=== PATIENT | female | born 1995 | race Caucasian/White ===

== ENCOUNTER 2017-05-18 16:06 | Outpatient (CLI) | payer BC, OTHER ==
[~2017-05-18] VITALS: Ht 157.5 cm; Wt 59.1 kg
[2017-05-18] MEDS ORDERED: TYLENOL 325MG325 MG PO (16:43)
[2017-05-18] MEDS ORDERED: PRENATAL (16:43)
[2017-05-18 16:44] VITALS: BP 119/82; PULSE 122; TEMP 98
[2017-05-18 16:56] VITALS: BP 119/82; PULSE 122; TEMP 98
== END 2017-05-18 17:20 | disposition home or self-care (01) ==
LOC: LDRO 16:06 → LDR 16:20 → LDRO 17:20
DX: Z34.03 Encounter for supervision of normal first pregnancy, third trimester (principal); Z3A.37 37 weeks gestation of pregnancy
CPT/HCPCS: OP

== ENCOUNTER 2017-05-21 09:39 | Inpatient (IN) | payer BC, OTHER ==
[2017-05-21] VITALS (19 sets, daily range): BP systolic 92–112; BP diastolic 50–86; PULSE 76–114; TEMP 97.5–98.3
[~2017-05-21] VITALS: Ht 156.2 cm; Wt 58.2 kg
[~2017-05-21 09:39] MED LIST: PRENATAL; TYLENOL 325MG325 MG PO
[2017-05-21 11:44] LABS: HEMATOCRIT 41.9 % (37.0-47.0); HEMOGLOBIN 14.1 g/dl (12.5-16.0); MEAN CELL VOLUME 90 fl (80.0-100.0); MEAN CORPUSCULAR HEMOGLOBIN 30 pg (27.0-31.0); MEAN CORPUSCULAR HGB CONC 34 g/dl (33.0-37.0); MEAN PLATELET VOLUME 9.7 fl (7.4-10.4); PLATELET COUNT 278 K/mm3 (130-400); RED BLOOD COUNT 4.64 M/mm3 (4.10-5.30); REDCELL DISTRIBUTION WIDTH-CV 12.6 % (11.5-14.5)
[2017-05-21 11:59] LABS: BAND 4 % (0-10); LYMPHOCYTE 30 % (20.0-51.0); NEUTROPHILS 60 % (42.0-75.2); PLATELET ESTIMATE NORMAL (NORMAL)
[2017-05-21 12:00] LABS: HYPOCHROMIA 1+
[2017-05-22] VITALS: BP 110/58; PULSE 70; TEMP 98
[2017-05-22] MEDS ORDERED: PERCOCET 325 MG1 TA2 PO (02:36)
[2017-05-22] MEDS ORDERED: MOTRIN 800800 MG/TAB PO (02:36)
[2017-05-22 04:00] VITALS: BP 111/64; PULSE 70; TEMP 98.4
[2017-05-22 06:35] VITALS: BP 101/65; PULSE 82; TEMP 97.7
[2017-05-22 07:32] LABS: HEMATOCRIT 32.6 % (37.0-47.0)
[2017-05-22 16:00] VITALS: BP 97/69; PULSE 83; TEMP 98.1
[2017-05-22 19:00] VITALS: BP 93/62; PULSE 82; TEMP 97.7
[2017-05-22 22:30] VITALS: BP 127/65; PULSE 81; TEMP 98.5
[2017-05-23 08:31] VITALS: BP 102/65; PULSE 82; TEMP 98.1
[2017-05-23 15:21] VITALS: BP 108/71; PULSE 92; TEMP 97.5
[2017-05-23 21:00] VITALS: BP 103/66; PULSE 94; TEMP 98.2
[2017-05-24 05:00] VITALS: TEMP 98.7
[2017-05-24 08:17] VITALS: BP 99/63; PULSE 96; TEMP 98.9
[2017-05-24] MEDS ORDERED: IBU800 M1 PO (12:29)
[2017-05-24] MEDS ORDERED: NORCO 325 MG-51 TAB PO (12:29)
== END 2017-05-24 13:05 | disposition home or self-care (01) | DRG 765 ==
LOC: LDRO 09:39 → OB 10:50 → LDR 10:50 → OB 15:38
PROVIDERS: Obstetrics & Gynecology
PROC: 10D00Z1 Extraction of Products of Conception, Low, Open Approach (ICD-10-PCS; principal; 2017-05-21)
DX: O42.02 Full-term premature rupture of membranes, onset of labor within 24 hours of rupture (principal); O98.82 Other maternal infectious and parasitic diseases complicating childbirth; B37.3 Candidiasis of vulva and vagina; O32.1XX0 Maternal care for breech presentation, not applicable or unspecified; O26.843 Uterine size-date discrepancy, third trimester; Z3A.38 38 weeks gestation of pregnancy; Z37.0 Single live birth
CPT/HCPCS: J0690; J1885; J2175; J2270; J2370; J2405; J2590; J3010; J7120

== ENCOUNTER → 2020-01-17 | Outpatient (CLI) | payer OTHER ==
[~2020-01-17] MED LIST changes: +IBU800 M1 PO; +MOTRIN 800800 MG/TAB PO; +NORCO 325 MG-51 TAB PO; +PERCOCET 325 MG1 TA2 PO
== END ==
LOC: COL.RAD
DX: O26.892 Other specified pregnancy related conditions, second trimester (principal); R10.9 Unspecified abdominal pain; Z3A.16 16 weeks gestation of pregnancy

== ENCOUNTER 2020-06-12 05:28 | Inpatient (IN) | payer OTHER ==
[~2020-06-12] VITALS: Ht 157.5 cm; Wt 57.3 kg
[2020-06-12] VITALS (17 sets, daily range): BP systolic 91–122; BP diastolic 59–88; PULSE 67–113; TEMP 97.5–98.1
--- NOTE | 2020-06-12 05:35 | NUR ---
Ambulatory to unit for scheduled C/S, accompanied by spouse.
--- NOTE | 2020-06-12 06:30 | NUR ---
0630-Recieved report from [facility] and [facility]. Patient assessment complete. Updated on plan of care. Assisted with clipping mons pubis and abdominal cleanse per protocol. 0510-Ambulatory with spouse to OR.
[2020-06-12 06:32] LABS: HEMATOCRIT 41.1 % (37.0-47.0); HEMOGLOBIN 13.8 g/dl (12.5-16.0); MEAN CELL VOLUME 91 fl (80.0-100.0); MEAN CORPUSCULAR HEMOGLOBIN 31 pg (27.0-31.0); MEAN CORPUSCULAR HGB CONC 34 g/dl (33.0-37.0); MEAN PLATELET VOLUME 9.4 fl (7.4-10.4); PLATELET COUNT 280 K/mm3 (130-400); RED BLOOD COUNT 4.52 M/mm3 (4.10-5.30); REDCELL DISTRIBUTION WIDTH-CV 13.2 % (11.5-14.5)
[2020-06-12 07:42] LABS: LYMPHOCYTE 11 % (20.0-51.0); NEUTROPHILS 88 % (42.0-75.2); PLATELET ESTIMATE NORMAL (NORMAL)
--- NOTE | 2020-06-12 08:25 | NUR ---
0825-Recieved report from [facility]. Marisolnt A&Ox4. IV to left forearm, gonzalez to DD, clear yellow urine. Abdominal binder on and dressing underneath C/D/I. Fundal massage firm, Lochia WNL. Denies pain at this time. Assessment complete. Remained with patient in PACU per protocol.
--- NOTE | 2020-06-12 09:00 | NUR ---
0900-Patient to room via bed. Remains A&Ox4. VSS, see reocovery flow record. Updated on plan of care.
[2020-06-12] MEDS ORDERED: MOTRIN 800800 MG/TAB PO (10:04)
[2020-06-12] MEDS ORDERED: PERCOCET 325 MG1 TA2 PO (10:04)
[2020-06-13 01:10] VITALS: BP 93/60; PULSE 75; TEMP 97.7
[2020-06-13 03:00] VITALS: BP 110/68; PULSE 70; TEMP 98
[2020-06-13 08:05] VITALS: BP 86/58; PULSE 79
--- NOTE | 2020-06-13 09:05 | NUR ---
Initial visit; Parents thanked Director Of Physical Security for offering congratulations and God's blessings for the of their son. Director Of Physical Security thanked family for choosing [facility].
[2020-06-13 16:16] VITALS: BP 85/56; PULSE 79
[2020-06-13 20:25] VITALS: BP 92/62; PULSE 76; TEMP 98.3
[2020-06-14 07:20] VITALS: BP 96/62; PULSE 70; TEMP 98
== END 2020-06-14 14:00 | disposition home or self-care (01) | DRG 788 ==
LOC: OB 05:28
PROVIDERS: ADMIT Obstetrics & Gynecology
PROC: 10D00Z1 Extraction of Products of Conception, Low, Open Approach (ICD-10-PCS; principal; 2020-06-12)
DX: O34.211 Maternal care for low transverse scar from previous cesarean delivery (principal); O99.344 Other mental disorders complicating childbirth; O99.824 Streptococcus B carrier state complicating childbirth; F41.9 Anxiety disorder, unspecified; Z3A.39 39 weeks gestation of pregnancy; Z37.0 Single live birth
CPT/HCPCS: J1580; J1885; J2370; J2405; J2590; J7120